=== PATIENT | female | born 1980 | race Two or more races ===

== ENCOUNTER 2024-12-09 09:00 | Day surgery (SDC) | payer BC, OTHER ==
[~2024-12-09 09:00] MED LIST: Sodium Chloride 0.9% 10 ML Syringe FLUSH PRN; Sodium Chloride 0.9% 2.5 ML Syringe FLUSH PRN
[2024-12-09] MEDS: Lactated Ringers 1,000 ML IV SCH (09:46)
[2024-12-09] MEDS ORDERED: Propofol 200 MG/20 ML SDV ONE (10:01)
== END 2024-12-09 11:55 | disposition home or self-care (01) ==
LOC: MW.SDS 09:00
PROVIDERS: ATTEND Surgery
DX: Z12.11 Encounter for screening for malignant neoplasm of colon (principal); D12.8 Benign neoplasm of rectum; K63.5 Polyp of colon; K57.30 Diverticulosis of large intestine without perforation or abscess without bleeding
CPT/HCPCS: 45385; 81025; J2003; J2704; J7120; 00811